=== PATIENT | male | born 1995 | race Hispanic/Latino ===

== ENCOUNTER → 2018-12-05 | Outpatient (CLI) | payer OTHER ==
--- NOTE | 2018-12-05 10:39 | Diagnostic Imaging Report ---
Exam: Brain MRI without IV contrast History: Papilledema, double vision Comparison studies: None Technique: Sagittal and axial T2 FS, axial DWI, axial T2*GRE, axial T1 FLAIR and axial coronal T2 FLAIR. Intravenous contrast: None Findings: Scalp: Normal in signal. No masses. Bone marrow: Normal in signal intensity. Brain sulci: Appropriate for age. Ventricles: Normal in size. No hydrocephalus. Extra axial spaces: No mass, no fluid collection. Parenchyma: A few scattered small T2 FLAIR hyperintense foci in the supratentorial white matter are nonspecific. No signal abnormalities in the corpus callosum, basal ganglia or posterior fossa. A findings do not have the typical appearance for multiple sclerosis. No mass, hemorrhage or acute ischemia. Suprasellar region: Mostly CSF filled sella, a nonspecific finding. Craniocervical junction: Patent foramen magnum. No Chiari malformation. Vessels: Normal flow-voids in the arteries and sinuses. IMPRESSION: 1. A few small foci of signal abnormality in the bifrontal white matter are nonspecific. Similar finding's can be seen in patients with migraine headache. Consider vasculopathy or demyelination only in the appropriate clinical setting. 2. Partially empty sella, also a nonspecific finding. Consider idiopathic intracranial hypertension only in the appropriate clinical context. Signed by: Dr. Scooby Paez M.D. on 12/05/2018 10:35 AM
== END ==
LOC: MRI 08:48
PROVIDERS: ATTEND Ophthalmology
DX: H47.11 Papilledema associated with increased intracranial pressure (principal)
CPT/HCPCS: 70551

== ENCOUNTER → 2019-01-08 | Outpatient (CLI) | payer OTHER ==
[~2019-01-08] MED LIST: LIDOCAINE HCL 1% LOCAL INJ 20 ML VIAL ONE
[2019-01-08 15:11] LABS: TOTAL PROTEIN,CSF 23.1 mg/dL (15-40)
[2019-01-08 16:06] LABS: APPEARANCE,CSF CLEAR (CLEAR); COLOR,CSF COLORLESS (COLORLESS); TUBE NUMBER 3; WHITE BLOOD CELL,CSF 1 cells/uL (0-5)
--- NOTE | 2019-01-09 17:17 | Diagnostic Imaging Report ---
EXAMINATION: Fluoroscopically-guided lumbar puncture HISTORY: Benign intracranial hypertension. TECHNIQUE: medication: None. anesthesia: 1% lidocaine, 5 cc needle: 22 gauge x 5 inch spinal fluoro time: 1.3 minutes DAP: 167 mGy PROCEDURE: After giving informed consent, the patient lay prone on the examination table. The back was prepped and draped in the usual sterile manner, and then 1% lidocaine was infiltrated in the skin. The spinal needle was advanced through the L4-L5 interspace via a left sided approach until CSF was obtained. The opening pressure was mildly elevated at 28 cm H20. Approximately 13 mL of clear fluid was removed. At this point, no further fluid could be removed. The needle was attempted to be repositioned, but no further fluid could be removed. Repeat pressure measurement could not be obtained. Furthermore, the patient was not amenable to repeat puncture. The needle was subsequently removed. The samples were sent to the laboratory for tests ordered by the referring physician. The patient was transferred to the recovery area in stable condition. FINDINGS: CSF: Clear. IMPRESSION: Fluoroscopically-guided lumbar puncture as above. Mildly elevated opening pressure of 28 cm H20. Total of 13 cc of clear fluid was removed, however no further fluid could be removed as above. Therefore high volume tap as requested was not performed. Repeat pressure measurement could not be obtained. Signed by: Dr. Fabrice Jackson MD on 01/09/2019 5:13 PM
== END ==
LOC: DX 09:10
PROVIDERS: ATTEND Psychiatry & Neurology Clinical Neurophysiology
DX: G93.2 Benign intracranial hypertension (principal)
CPT/HCPCS: 36415; 62270; 77003; 82945; 84157; 87070; 87205; 89051; J2001